=== PATIENT | male | born 1965 | race Caucasian/White ===

== ENCOUNTER 2018-08-11 21:24 | Observation (INO) | payer BC, OTHER ==
[2018-08-11] MEDS ORDERED: Sodium Chloride 0.9% 1,000 ML IV ONE (21:55)
[2018-08-11] MEDS ORDERED: Labetalol 100 MG/20 ML MDV IVPUSH ONE ×2 (22:02→22:42)
--- NOTE | 2018-08-11 22:11 | EDM.PDOC ---
ED HPI GENERAL MEDICAL PROBLEM - General Chief Complaint: Eye Problems Stated Complaint: PT VISION BLURRED Time Seen by Provider: 08/11/18 21:54 Source of Information: Reports: Patient History Limitations: Reports: No Limitations - History of Present Illness INITIAL COMMENTS - FREE TEXT/NARRATIVE: HISTORY AND PHYSICAL: History of present illness: Patient is a 52-year-old male presents to the ED today with concern of bilateral eye blurring. Patient states that about 4 this afternoon. He had just gotten to work, he noticed that both of his eyes started to feel like they were burning. He states he then started watering and shortly after that they both became blurry. Patient states he does wear glasses but even with his glasses on and looks like he is not wearing them when he looks out. Patient denies any trauma or any chemical exposure to his eye. Patient denies any health history. Patient denies fever, chills, chest pain, shortness of breath, or cough. Denies headache, neck stiff ness, syncope, or near syncope. Denies nausea, vomiting, abdominal pain, diarrhea, constipation, or dysuria. Has not noted any blood in urine or stool. Patient has been eating and drinking appropriately. Review of systems: As per history of present illness and below otherwise all systems reviewed and negative. Past medical history: As per history of present illness and as reviewed below otherwise noncontributory. Surgical history: As per history of present illness and as reviewed below otherwise noncontributory. Social history: See social history for further information Family history: As per history of present illness and as reviewed below otherwise noncontributory. Physical exam: General: Patient is alert, oriented, and in no acute distress. Patient sitting comfortably on exam table. HEENT: Visual acuity performed upon arrival to the ED. Atraumatic, normocephalic , pupils equal and reactive bilaterally, negative for conjunctival pallor or scleral icterus, bilateral sclera are injected and eyes are tearing, no haziness of the cornea, mucous membranes moist, TMs normal bilaterally, throat clear, neck supple, nontender, trachea midline. No drooling or trismus noted. No meningeal signs. No hot potato voice noted. Lungs: Clear to auscultation, breath sounds equal bilaterally, chest nontender. Heart: S1S2, regular rate and rhythm without overt murmur Abdomen: Obese, Soft, nondistended, nontender. Negative for masses or hepatosplenomegaly. Negative for costovertebral tenderness. Pelvis: Stable nontender. Genitourinary: Deferred. Rectal: Deferred. Skin: Intact, warm, dry. No lesions or rashes noted. Extremities: Atraumatic, negative for cords or calf pain. Neurovascular unremarkable. Neuro: Awake, alert, oriented. Cranial nerves II through XII unremarkable. Cerebellum unremarkable. Motor and sensory unremarkable throughout. Exam nonfocal. Notes: Dr. Snow verbally involved in patient care. Patient found to be hypertensive upon arrival. Patient expresses resolution of symptoms with improvement of blood pressure. Dr. Green consult on patient and will admit to observation. Voices understanding and is agreeable to plan of care. Denies any further questions or concerns at this time. Diagnostics: CBC, CMP, UA, EKG, troponin, head CT, CXR Therapeutics: Labetalol, saline, Enalapril, Norvasc Impression: Hypertensive emergency Plan: 1. Admit to observation to Dr. Green Definitive disposition and diagnosis as appropriate pending reevaluation and review of above. Bilateral Eye Pain Score (Numeric/FACES): 6 - Related Data Allergies Allergy/AdvReac Type Severity Reaction Status Date / Time No Known Allergies Allergy Verified 08/11/18 21:37 Home Meds: Home Meds . [No Known Home Meds] 08/11/18 [History] Past Medical History HEENT History: Reports: Impaired Vision Cardiovascular History: Reports: Hypertension Gastrointestinal History: Reports: None Genitourinary History: Reports: None Neurological History: Reports: None Psychiatric History: Reports: None Endocrine/Metabolic History: Reports: None Hematologic History: Reports: None Immunologic History: Reports: None Oncologic (Cancer) History: Reports: None Dermatologic History: Reports: None - Infectious Disease History Infectious Disease History: Reports: C-Difficile, Measles - Past Surgical History Head Surgeries/Procedures: Reports: None Musculoskeletal Surgical History: Reports: Other (See Below) Other Musculoskeletal Surgeries/Procedures:: Left arm surgery, and Left ACL Social & Family History - Family History Family Medical History: Noncontributory - Tobacco Use Smoking Status *Q: Never Smoker Second Hand Smoke Exposure: No - Caffeine Use Caffeine Use: Reports: None - Recreational Drug Use Recreational Drug Use: No ED ROS GENERAL - Review of Systems Review Of Systems: ROS reveals no pertinent complaints other than HPI. ED EXAM GENERAL W FULL EYE - Physical Exam Exam: See Below (See dictation) Course - Vital Signs Last Recorded V/S: Last Vital Signs Temp 36.6 C 08/11/18 22:14 Pulse 79 08/11/18 22:56 Resp 17 08/11/18 22:56 BP 152/111 H 08/11/18 23:19 Pulse Ox 92 L 08/11/18 22:56 - Orders/Labs/Meds Orders: Active Orders 24 hr Category Date Time Status Admission Status [Patient Status] [ADT] Stat ADT 08/11/18 23:30 Ordered Communication Order [RC] STAT Care 08/11/18 21:56 Active EKG Documentation Completion [RC] STAT Care 08/11/18 21:55 Active Labs: Laboratory Tests 08/11/18 08/11/18 08/11/18 Range/Units 21:58 21:58 22:47 WBC 8.62 (4.0-11.0) K/uL RBC 5.21 (4.50-5.90) M/uL Hgb 15.0 (13.0-17.0) g/dL Hct 45.0 (38.0-50.0) % MCV 86.4 (80.0-98.0) fL MCH 28.8 (27.0-32.0) pg MCHC 33.3 (31.0-37.0) g/dL RDW Std Deviation 46.6 (28.0-62.0) fl RDW Coeff of Padmini 15 (11.0-15.0) % Plt Count 193 (150-400) K/uL MPV 10.00 (7.40-12.00) fL Neut % (Auto) 69.1 (48.0-80.0) % Lymph % (Auto) 20.9 (16.0-40.0) % [place] % (Auto) 8.1 (0.0-15.0) % Eos % (Auto) 1.7 (0.0-7.0) % Baso % (Auto) 0.2 (0.0-1.5) % Neut # (Auto) 6.0 H (1.4-5.7) K/uL Lymph # (Auto) 1.8 (0.6-2.4) K/uL [place] # (Auto) 0.7 (0.0-0.8) K/uL Eos # (Auto) 0.2 (0.0-0.7) K/uL Baso # (Auto) 0.0 (0.0-0.1) K/uL Nucleated RBC % 0.0 /100WBC Nucleated RBCs # 0 K/uL Sodium 139 (136-148) mmol/L Potassium 4.3 (3.5-5.1) mmol/L Chloride 104 (98-107) mmol/L Carbon Dioxide 27.9 (21.0-32.0) mmol/L BUN 24 H (7.0-18.0) mg/dL Creatinine 1.4 H (0.8-1.3) mg/dL Est Cr Clr Drug Dosing 67.75 mL/min Estimated GFR (MDRD) 53.2 ml/min Glucose 122 H (74-106) mg/dL Calcium 9.0 (8.5-10.1) mg/dL Total Bilirubin 0.5 (0.2-1.0) mg/dL AST 23 (15-37) IU/L ALT 47 (14-63) IU/L Alkaline Phosphatase 90 (46-116) U/L Troponin I < 0.050 (0.000-0.056) ng/mL Total Protein 7.7 (6.4-8.2) g/dL Albumin 4.1 (3.4-5.0) g/dL Globulin 3.6 (2.6-4.0) g/dL Albumin/Globulin Ratio 1.1 (0.9-1.6) Urine Color YELLOW Urine Appearance CLEAR Urine pH 6.0 (5.0-8.0) Ur Specific [place] 1.010 (1.001-1.035) Urine Protein NEGATIVE (NEGATIVE) mg/dL Urine Glucose (UA) NEGATIVE (NEGATIVE) mg/dL Urine Ketones NEGATIVE (NEGATIVE) mg/dL Urine Occult Blood TRACE-INTACT H (NEGATIVE) Urine Nitrite NEGATIVE (NEGATIVE) Urine Bilirubin NEGATIVE (NEGATIVE) Urine Urobilinogen 0.2 (<2.0) EU/dL Ur Leukocyte Esterase NEGATIVE (NEGATIVE) Urine RBC 1-3 (0-2/HPF) Urine WBC 0-1 (0-5/HPF) Ur Epithelial Cells RARE (NONE-FEW) Urine Bacteria RARE (NEGATIVE) Meds: Medications Discontinued Medications Generic Name Dose Route Start Last Admin Trade Name Freq PRN Reason Stop Dose Admin Amlodipine Besylate 10 mg 08/11/18 22:52 08/11/18 23:19 Norvasc PO 08/11/18 22:53 10 mg ONETIME ONE Administration Enalaprilat 0.625 mg 08/11/18 22:53 08/11/18 23:17 Vasotec Iv IVPUSH 08/11/18 22:54 0.625 mg NOW STA Administration Sodium Chloride 1,000 mls @ 999 mls/hr 08/11/18 21:55 08/11/18 21:58 Normal Saline IV 08/11/18 22:55 999 mls/hr BOLUS ONE Administration Labetalol HCl 10 mg 08/11/18 22:02 08/11/18 22:35 Normodyne IVPUSH 08/11/18 22:03 10 mg ONETIME ONE Administration Protocol Labetalol HCl Confirm 08/11/18 22:20 08/11/18 22:38 Normodyne Administered 08/11/18 22:21 Not Given Dose 100 mg .ROUTE .STK-MED ONE Labetalol HCl 20 mg 08/11/18 22:42 08/11/18 22:50 Normodyne IVPUSH 08/11/18 22:43 20 mg ONETIME ONE Administration Protocol Departure - Departure Time of Disposition: 23:32 Disposition: Refer to Observation Clinical Impression: Hypertensive emergency - Discharge Information - My Orders Last 24 Hours: My Active Orders 08/11/18 21:55 EKG Documentation Completion [RC] STAT 08/11/18 21:56 Communication Order [RC] STAT 08/11/18 23:30 Admission Status [Patient Status] [ADT] Stat - Assessment/Plan Last 24 Hours: My Active Orders 08/11/18 21:55 EKG Documentation Completion [RC] STAT 08/11/18 21:56 Communication Order [RC] STAT 08/11/18 23:30 Admission Status [Patient Status] [ADT] Stat
[2018-08-11] MEDS ORDERED: Labetalol 100 MG/20 ML MDV ONE (22:20)
[2018-08-11 22:31] LABS: CHLORIDE,CL 104 mmol/L (98-107); SODIUM,NA 139 mmol/L (136-148)
[2018-08-11] MEDS ORDERED: amLODIPine 5 MG Tab PO ONE (22:52)
[2018-08-11] MEDS ORDERED: Enalaprilat 1.25 MG/ML SDV IVPUSH STA (22:53)
--- NOTE | 2018-08-11 23:04 | CT ---
INDICATION: Blurry vision with hypertension. TECHNIQUE: CT head without contrast. COMPARISON: None. FINDINGS: CSF spaces: Within normal limits for age. Brain parenchyma and extra-axial spaces: The kelley-white differentiation is normal. No sign of mass, hemorrhage, or midline shift. No extra-axial fluid collection. Skull base and calvarium: The visualized paranasal sinuses and mastoid air cells demonstrate no acute or significant findings. The visualized orbits are grossly unremarkable. No skull fractures. IMPRESSION: Unremarkable noncontrast head CT. Please note that all CT scans at this facility use dose modulation, iterative reconstruction, and/or weight-based dosing when appropriate to reduce radiation dose to as low as reasonably achievable. Dictated by Fred Manzanares MD @ Aug 11 2018 11:01PM Signed by Dr. Fred Manzanares @ Aug 11 2018 11:03PM
--- NOTE | 2018-08-11 23:13 | CR ---
Indication: Hypertension Technique: Chest 1 view Comparison: None Findings/Impression: Cardiovascular and mediastinum: Heart size and vasculature are normal in caliber and appearance. Mediastinum is within normal limits. Lungs and pleural space: Lungs are clear. No sign of infiltrate or mass. No sign of pleural effusion. No pneumothorax. Bones and soft tissues: No significant findings. Dictated by Linda Boyle MD @ Aug 11 2018 11:11PM Signed by Dr. Linda Boyle @ Aug 11 2018 11:11PM
[2018-08-12] MEDS ORDERED: Sodium Chloride 0.9% 10 ML Syringe FLUSH PRN (00:04)
[2018-08-12] MEDS ORDERED: Sodium Chloride 0.9% 2.5 ML Syringe FLUSH PRN (00:04)
[2018-08-12] MEDS ORDERED: Hydrochlorothiazide 25 MG Tab PO ONE (00:04)
[2018-08-12 06:08] LABS: CHLORIDE,CL 108 mmol/L (98-107); SODIUM,NA 142 mmol/L (136-148)
[2018-08-12 08:36] LABS: HEMOGLOBIN A1C 6.1 % (4.5-6.2)
--- NOTE | 2018-08-12 08:55 | PCM.HP ---
H&P History of Present Illness - General Date of Service: 08/12/18 Admit Problem/Dx: Admission Diagnosis/Problem Admission Diagnosis/Problem Hypertensive emergency Source of Information: Patient History Limitations: Reports: No Limitations - History of Present Illness Initial Comments - Free Text/Narative: This 52 year old male with no significant pmh presented to the ED with concerns of burning eyes and blurred vision. He reports he was ate work for the night and started having watery, burning eyes an runny nose. Then his vision went very blurry and wearing his glasses did not help. He denies headache or neck pain. No chest pain or shortness of breath. No Nausea or vomiting. He denies this ever happening before. He Reports he otherwise has been feeling well. He reports he has had a stress test in the past, which was negative. He has significant family history of heart disease, his paternal grandfather of a DE in his 60s, his father at age 59 of an DE and all four brothers have also in their 40-50s from heart disease. He denies any current home medicaitons. He reports he chews tobacco 1 tin every 2-3 days, rare alcohol use and no recreational drug use. In the ED, CBC WNL> BUN 24, Cr 1.4 Troponin negative. UA negative. Headt CT negative and CXr negative as well. BP were noted to be in excess of 218/111. He was given Labetolol, Enalapril and Norvasc. BP decreased to 170/100s. He will be admitted with hypertensive urgency. No PCP in area Bilateral Eye Pain Score (Numeric/FACES): 6 - Related Data Allergies/Adverse Reactions: Allergies Allergy/AdvReac Type Severity Reaction Status Date / Time acetaminophen [From Tylenol] Allergy Rash Verified 08/12/18 01:42 Home Medications: Home Meds Aspirin 81 mg PO DAILY tab.chew 08/12/18 [Rx] Loratadine [Claritin] 10 mg PO DAILY tablet 08/12/18 [Rx] atorvaSTATin [Lipitor] 20 mg PO BEDTIME #30 tablet 08/12/18 [Rx] hydroCHLOROthiazide [Hydrochlorothiazide] 25 mg PO DAILY #30 tablet 08/12/18 [Rx ] Past Medical History HEENT History: Reports: Impaired Vision Cardiovascular History: Reports: Hypertension. Denies: Afib, Blood Clots/VTE/ DVT, CAD, DE Respiratory History: Reports: None. Denies: Asthma, COPD Gastrointestinal History: Reports: None. Denies: GERD Genitourinary History: Reports: None. Denies: BPH, Chronic Renal Insuffiency Musculoskeletal History: Reports: Fracture Neurological History: Reports: None. Denies: CVA, TIA Psychiatric History: Reports: None Endocrine/Metabolic History: Reports: Obesity/BMI 30+. Denies: Diabetes, Type II, Hypothyroidism Hematologic History: Reports: None Immunologic History: Reports: None Oncologic (Cancer) History: Reports: None Dermatologic History: Reports: None - Infectious Disease History Infectious Disease History: Reports: Measles, Other (See Below) Other Infectious Disease History: necrotizing fascitis in 2010 - Past Surgical History Head Surgeries/Procedures: Reports: None HEENT Surgical History: Reports: None Cardiovascular Surgical History: Reports: None Musculoskeletal Surgical History: Reports: Other (See Below) Other Musculoskeletal Surgeries/Procedures:: Left bicep tendon repair, 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 , and Left ACL repair Social & Family History - Family History Cardiac: Reports: CAD, Hypertension, DE (as per HPI) - Tobacco Use Smoking Status *Q: Never Smoker Second Hand Smoke Exposure: No - Caffeine Use Caffeine Use: Reports: Soda Caffeine Use Comment: pt. states "maybe one coke a week" - Alcohol Use Date of Last Drink: 08/02/18 - Recreational Drug Use Recreational Drug Use: No H&P Review of Systems - Review of Systems: Review Of Systems: See Below General: Reports: No Symptoms. Denies: Fever, Chills, Malaise, Weakness HEENT: Denies: Eye Pain, Vertigo, Visual Changes (improved with BP improved. eyes feel gritty) Pulmonary: Reports: No Symptoms. Denies: Shortness of Breath, Cough, Sputum Cardiovascular: Reports: Blood Pressure Problem. Denies: Chest Pain, Palpitations, Dyspnea on Exertion, Orthopnea, Edema, Lightheadedness Gastrointestinal: Reports: No Symptoms. Denies: Abdominal Pain, Black Stool, Bloody Stool, Flatus, Nausea, Vomiting Genitourinary: Reports: No Symptoms. Denies: Dysuria, Frequency, Burning Skin: Reports: No Symptoms Psychiatric: Reports: No Symptoms Neurological: Reports: No Symptoms Hematologic/Lymphatic: Reports: No Symptoms Immunologic: Reports: No Symptoms Exam - Exam Exam: See Below - Vital Signs Vital Signs: Last Vital Signs Temp 99 F 08/12/18 03:35 Pulse 77 08/12/18 03:35 Resp 16 08/12/18 03:35 BP 129/69 08/12/18 03:35 Pulse Ox 95 08/12/18 03:35 Weight: 129.51 kg - Exam General: Alert, Oriented, Cooperative HEENT: Conjunctiva Clear, Nares Patent, Pupils Equal Neck: Supple Lungs: Clear to Auscultation, Normal Respiratory Effort Cardiovascular: Regular Rate, Regular Rhythm, Normal S1, Normal S2 GI/Abdominal Exam: Normal Bowel Sounds, Soft, Non-Tender Extremities: Normal Inspection, Normal Range of Motion, Non-Tender, No Pedal Edema Neuro Extensive - Mental Status: Alert, Oriented x3 Neuro Extensive - Motor, Sensory, Reflexes: CN II-XII Intact Psychiatric: Alert, Normal Affect, Normal Mood - Patient Data Lab Results Last 24 hrs: Laboratory Results - last 24 hr 08/11/18 08/11/18 08/11/18 Range/Units 21:58 21:58 22:47 WBC 8.62 (4.0-11.0) K/uL RBC 5.21 (4.50-5.90) M/uL Hgb 15.0 (13.0-17.0) g/dL Hct 45.0 (38.0-50.0) % MCV 86.4 (80.0-98.0) fL MCH 28.8 (27.0-32.0) pg MCHC 33.3 (31.0-37.0) g/dL RDW Std Deviation 46.6 (28.0-62.0) fl RDW Coeff of Padmini 15 (11.0-15.0) % Plt Count 193 (150-400) K/uL MPV 10.00 (7.40-12.00) fL Neut % (Auto) 69.1 (48.0-80.0) % Lymph % (Auto) 20.9 (16.0-40.0) % [place] % (Auto) 8.1 (0.0-15.0) % Eos % (Auto) 1.7 (0.0-7.0) % Baso % (Auto) 0.2 (0.0-1.5) % Neut # (Auto) 6.0 H (1.4-5.7) K/uL Lymph # (Auto) 1.8 (0.6-2.4) K/uL [place] # (Auto) 0.7 (0.0-0.8) K/uL Eos # (Auto) 0.2 (0.0-0.7) K/uL Baso # (Auto) 0.0 (0.0-0.1) K/uL Nucleated RBC % 0.0 /100WBC Nucleated RBCs # 0 K/uL Sodium 139 (136-148) mmol/L Potassium 4.3 (3.5-5.1) mmol/L Chloride 104 (98-107) mmol/L Carbon Dioxide 27.9 (21.0-32.0) mmol/L BUN 24 H (7.0-18.0) mg/dL Creatinine 1.4 H (0.8-1.3) mg/dL Est Cr Clr Drug Dosing 67.75 mL/min Estimated GFR (MDRD) 53.2 ml/min Glucose 122 H (74-106) mg/dL Hemoglobin A1c (4.5-6.2) % Calcium 9.0 (8.5-10.1) mg/dL Total Bilirubin 0.5 (0.2-1.0) mg/dL AST 23 (15-37) IU/L ALT 47 (14-63) IU/L Alkaline Phosphatase 90 (46-116) U/L Troponin I < 0.050 (0.000-0.056) ng/mL Total Protein 7.7 (6.4-8.2) g/dL Albumin 4.1 (3.4-5.0) g/dL Globulin 3.6 (2.6-4.0) g/dL Albumin/Globulin Ratio 1.1 (0.9-1.6) Triglycerides (0-200) mg/dL Cholesterol (50-200) mg/dL LDL Cholesterol, Calc (60-180) mg/dL VLDL Cholesterol (5-55) mg/dL HDL Cholesterol (40-60) mg/dL Cholesterol/HDL Ratio (3.3-6.0) Urine Color YELLOW Urine Appearance CLEAR Urine pH 6.0 (5.0-8.0) Ur Specific [place] 1.010 (1.001-1.035) Urine Protein NEGATIVE (NEGATIVE) mg/dL Urine Glucose (UA) NEGATIVE (NEGATIVE) mg/dL Urine Ketones NEGATIVE (NEGATIVE) mg/dL Urine Occult Blood TRACE-INTACT H (NEGATIVE) Urine Nitrite NEGATIVE (NEGATIVE) Urine Bilirubin NEGATIVE (NEGATIVE) Urine Urobilinogen 0.2 (<2.0) EU/dL Ur Leukocyte Esterase NEGATIVE (NEGATIVE) Urine RBC 1-3 (0-2/HPF) Urine WBC 0-1 (0-5/HPF) Ur Epithelial Cells RARE (NONE-FEW) Urine Bacteria RARE (NEGATIVE) 08/12/18 08/12/18 08/12/18 Range/Units 05:27 05:27 05:27 WBC 6.77 (4.0-11.0) K/uL RBC 4.83 (4.50-5.90) M/uL Hgb 13.8 (13.0-17.0) g/dL Hct 42.3 (38.0-50.0) % MCV 87.6 (80.0-98.0) fL MCH 28.6 (27.0-32.0) pg MCHC 32.6 (31.0-37.0) g/dL RDW Std Deviation 47.8 (28.0-62.0) fl RDW Coeff of Padmini 15 (11.0-15.0) % Plt Count 173 (150-400) K/uL MPV 9.70 (7.40-12.00) fL Neut % (Auto) 61.2 (48.0-80.0) % Lymph % (Auto) 27.8 (16.0-40.0) % [place] % (Auto) 8.3 (0.0-15.0) % Eos % (Auto) 2.4 (0.0-7.0) % Baso % (Auto) 0.3 (0.0-1.5) % Neut # (Auto) 4.2 (1.4-5.7) K/uL Lymph # (Auto) 1.9 (0.6-2.4) K/uL [place] # (Auto) 0.6 (0.0-0.8) K/uL Eos # (Auto) 0.2 (0.0-0.7) K/uL Baso # (Auto) 0.0 (0.0-0.1) K/uL Nucleated RBC % 0.0 /100WBC Nucleated RBCs # 0 K/uL Sodium 142 (136-148) mmol/L Potassium 3.9 (3.5-5.1) mmol/L Chloride 108 H (98-107) mmol/L Carbon Dioxide 26.2 (21.0-32.0) mmol/L BUN 26 H (7.0-18.0) mg/dL Creatinine 1.0 (0.8-1.3) mg/dL Est Cr Clr Drug Dosing 94.84 mL/min Estimated GFR (MDRD) > 60.0 ml/min Glucose 116 H (74-106) mg/dL Hemoglobin A1c (4.5-6.2) % Calcium 8.8 (8.5-10.1) mg/dL Total Bilirubin (0.2-1.0) mg/dL AST (15-37) IU/L ALT (14-63) IU/L Alkaline Phosphatase (46-116) U/L Troponin I (0.000-0.056) ng/mL Total Protein (6.4-8.2) g/dL Albumin (3.4-5.0) g/dL Globulin (2.6-4.0) g/dL Albumin/Globulin Ratio (0.9-1.6) Triglycerides 298 H (0-200) mg/dL Cholesterol 235 H (50-200) mg/dL LDL Cholesterol, Calc 145 (60-180) mg/dL VLDL Cholesterol 59 H (5-55) mg/dL HDL Cholesterol 30 L (40-60) mg/dL Cholesterol/HDL Ratio 7.8 H (3.3-6.0) Urine Color Urine Appearance Urine pH (5.0-8.0) Ur Specific [place] (1.001-1.035) Urine Protein (NEGATIVE) mg/dL Urine Glucose (UA) (NEGATIVE) mg/dL Urine Ketones (NEGATIVE) mg/dL Urine Occult Blood (NEGATIVE) Urine Nitrite (NEGATIVE) Urine Bilirubin (NEGATIVE) Urine Urobilinogen (<2.0) EU/dL Ur Leukocyte Esterase (NEGATIVE) Urine RBC (0-2/HPF) Urine WBC (0-5/HPF) Ur Epithelial Cells (NONE-FEW) Urine Bacteria (NEGATIVE) 08/12/18 Range/Units 05:27 WBC (4.0-11.0) K/uL RBC (4.50-5.90) M/uL Hgb (13.0-17.0) g/dL Hct (38.0-50.0) % MCV (80.0-98.0) fL MCH (27.0-32.0) pg MCHC (31.0-37.0) g/dL RDW Std Deviation (28.0-62.0) fl RDW Coeff of Padmini (11.0-15.0) % Plt Count (150-400) K/uL MPV (7.40-12.00) fL Neut % (Auto) (48.0-80.0) % Lymph % (Auto) (16.0-40.0) % [place] % (Auto) (0.0-15.0) % Eos % (Auto) (0.0-7.0) % Baso % (Auto) (0.0-1.5) % Neut # (Auto) (1.4-5.7) K/uL Lymph # (Auto) (0.6-2.4) K/uL [place] # (Auto) (0.0-0.8) K/uL Eos # (Auto) (0.0-0.7) K/uL Baso # (Auto) (0.0-0.1) K/uL Nucleated RBC % /100WBC Nucleated RBCs # K/uL Sodium (136-148) mmol/L Potassium (3.5-5.1) mmol/L Chloride (98-107) mmol/L Carbon Dioxide (21.0-32.0) mmol/L BUN (7.0-18.0) mg/dL Creatinine (0.8-1.3) mg/dL Est Cr Clr Drug Dosing mL/min Estimated GFR (MDRD) ml/min Glucose (74-106) mg/dL Hemoglobin A1c 6.1 (4.5-6.2) % Calcium (8.5-10.1) mg/dL Total Bilirubin (0.2-1.0) mg/dL AST (15-37) IU/L ALT (14-63) IU/L Alkaline Phosphatase (46-116) U/L Troponin I (0.000-0.056) ng/mL Total Protein (6.4-8.2) g/dL Albumin (3.4-5.0) g/dL Globulin (2.6-4.0) g/dL Albumin/Globulin Ratio (0.9-1.6) Triglycerides (0-200) mg/dL Cholesterol (50-200) mg/dL LDL Cholesterol, Calc (60-180) mg/dL VLDL Cholesterol (5-55) mg/dL HDL Cholesterol (40-60) mg/dL Cholesterol/HDL Ratio (3.3-6.0) Urine Color Urine Appearance Urine pH (5.0-8.0) Ur Specific [place] (1.001-1.035) Urine Protein (NEGATIVE) mg/dL Urine Glucose (UA) (NEGATIVE) mg/dL Urine Ketones (NEGATIVE) mg/dL Urine Occult Blood (NEGATIVE) Urine Nitrite (NEGATIVE) Urine Bilirubin (NEGATIVE) Urine Urobilinogen (<2.0) EU/dL Ur Leukocyte Esterase (NEGATIVE) Urine RBC (0-2/HPF) Urine WBC (0-5/HPF) Ur Epithelial Cells (NONE-FEW) Urine Bacteria (NEGATIVE) Result Diagrams: 08/12/18 05:27 08/12/18 05:27 - Problem List (1) Hypertensive emergency SNOMED Code(s): 635983086549959 ICD Code: I16.1 - HYPERTENSIVE EMERGENCY Status: Acute Current Visit: Yes (2) Hyperlipidemia SNOMED Code(s): 43959716 ICD Code: E78.5 - HYPERLIPIDEMIA, UNSPECIFIED Status: Acute Current Visit : Yes (3) HTN (hypertension) SNOMED Code(s): 50839003 ICD Code: I10 - ESSENTIAL (PRIMARY) HYPERTENSION Status: Acute Current Visit: Yes (4) Obesity SNOMED Code(s): 264994042, 358605610 ICD Code: E66.9 - OBESITY, UNSPECIFIED Status: Chronic Current Visit: Yes Problem List Initiated/Reviewed/Updated: Yes Orders Last 24hrs: Active Orders 24 hr Category Date Time Status Admission Status [Patient Status] [ADT] Stat ADT 08/11/18 23:30 Active Ambulate [RC] ASDIRECTED Care 08/12/18 08:49 Ordered Antiembolic Devices [RC] PER UNIT ROUTINE Care 08/12/18 08:49 Ordered Intake and Output [RC] QSHIFT Care 08/12/18 08:49 Ordered Oxygen Therapy [RC] PRN Care 08/12/18 08:49 Ordered Telemetry Monitoring [Cardiac Monitoring] [RC] . Care 08/11/18 23:58 Active DIRECTED VTE/DVT Education [RC] PER UNIT ROUTINE Care 08/12/18 08:49 Ordered Vital Signs [RC] Q4H Care 08/12/18 08:49 Ordered Regular Diet [DIET] Diet 08/12/18 Breakfast Active Aspirin Med 08/12/18 09:00 Ordered 81 mg PO DAILY Loratadine [Claritin] Med 08/12/18 09:00 Ordered 10 mg PO DAILY Sodium Chloride 0.9% [Saline Flush] Med 08/12/18 00:04 Active 10 ml FLUSH ASDIRECTED PRN Sodium Chloride 0.9% [Saline Flush] Med 08/12/18 00:04 Active 2.5 ml FLUSH ASDIRECTED PRN atorvaSTATin [Lipitor] Med 08/12/18 21:00 Ordered 20 mg PO BEDTIME Saline Lock Insert [OM.PC] Routine Oth 08/12/18 00:04 Ordered Sequential Compression Device [OM.PC] Per Unit Routine Oth 08/12/18 08:49 Ordered Resuscitation Status Routine Resus Stat 08/12/18 08:49 Ordered Medication Orders Aspirin (Aspirin) 81 mg PO DAILY TORI Atorvastatin Calcium (Lipitor) 20 mg PO BEDTIME TORI Sodium Chloride (Saline Flush) 10 ml FLUSH ASDIRECTED PRN PRN Reason: Keep Vein Open Sodium Chloride (Saline Flush) 2.5 ml FLUSH ASDIRECTED PRN PRN Reason: Keep Vein Open Assessment/Plan Comment:: This 52 year old male admitted with hypertensive urgency 1. Hypertensive urgency: BP improved with medications from ED, no further vision concerns. No chest pain. Will start HCTZ today. BPs 130/80s since 0400. Lipid panel shows hyperlipidemia, triglycerides 238, total cholesterol 235, LDL 145, HDL 30 and A1c 6.1. He was educated on weight loss. He was also educated on tobacco cessation, he reports he is going to try quit, but "I have quit many times and just restart again." VTE prophylaxis: SCDs Dispo: today Discharge Plan: HTN Ken was admitted and treated for hypertensive urgency. BPs were stabilized and blurred vision cleared once BP improved. He had no chest pain. he will be started on HCTZ 25 mg daily as well as Atorvastatin 20 mg daily and ASA. He was encouraged to quit chewing tobacco and lose weight. He is high risk for cardiac events especially with family history. He verbalized understanding. BP this morning 130/80s and he is eager to go home. He will be sent home with Ena for his allergic conjunctivitis. Explicitly told to stay away from decongestant medications. he can use OTC eye drops as well. He is to return to ED or clinic if concerns should arise. Follow up with PCP will be set up as well as with eye doctor for eye exam.
[2018-08-12] MEDS ORDERED: Aspirin 81 MG Tab.Chew PO SCH (09:00)
[2018-08-12] MEDS ORDERED: Loratadine 10 MG Tab PO SCH (09:00)
[2018-08-12] MEDS ORDERED: Hydrochlorothiazide 25 MG Tab PO SCH (09:15)
[2018-08-12] MEDS ORDERED: atorvaSTATin 20 MG Tab PO SCH (21:00)
== END 2018-08-12 12:05 | disposition home or self-care (01) ==
LOC: MW.ED 21:24 → MW.MS 23:30 → UNDOADMOB 23:49 → MW.MS 23:49
PROVIDERS: ADMIT Internal Medicine; ATTEND Internal Medicine
DX: I16.0 Hypertensive urgency (principal); I10 Essential (primary) hypertension; E78.5 Hyperlipidemia, unspecified; E66.9 Obesity, unspecified; F17.220 Nicotine dependence, chewing tobacco, uncomplicated; Z88.8 Allergy status to other drugs, medicaments and biological substances; Z82.49 Family history of ischemic heart disease and other diseases of the circulatory system; Z68.38 Body mass index [BMI] 38.0-38.9, adult
CPT/HCPCS: 36415; 70450; 71045; 80048; 80053; 80061; 81001; 83036; 84484; 85025; 93005; 96361; 96374; 96375; 99285; A9270; G0378; J3490; J7040